=== PATIENT | male | born 2000 | race Two or more races ===

== ENCOUNTER 2023-09-19 22:46 | Emergency (ER) | payer MEDICAID, OTHER ==
[~2023-09-19] VITALS: Ht 182.9 cm; Wt 101.5 kg
[2023-09-19 22:50] VITALS: BP 134/86; RESP 18; O2SAT 98
[2023-09-19 23:41] LABS: INR 1.08 (0.9-1.15); Prothrombin Time 11.3 sec (9.3-11.8)
[2023-09-19 23:49] LABS: Alanine Aminotransferase 36 U/L (7-40); Alkaline Phosphatase 98 U/L (46-116); Anion Gap 7 (5-15); Aspartate Aminotransferase 26 U/L (13-40); Calcium 9.2 mg/dL (8.7-10.4); Carbon Dioxide 24 mmol/L (20-30); Chloride 107 mmol/L (98-107); Glucose 104 mg/dL (74-106); Sodium 138 mmol/L (136-145)
[2023-09-19 23:50] LABS: Albumin 4.7 g/dL (3.2-4.8); Total Protein 7.2 g/dL (5.7-8.2)
[2023-09-19 23:51] LABS: BUN/Creatinine Ratio 5.5 (10.0-20.0); Blood Urea Nitrogen < 5 mg/dL (9-23)
[2023-09-20 00:54] VITALS: PULSE 78
== END 2023-09-20 06:11 | disposition home or self-care (01) ==
LOC: ER 22:46 → EDSEX 22:46 → ER 09-20 06:11
DX: R07.9 Chest pain, unspecified (principal); Z79.899 Other long term (current) drug therapy
CPT/HCPCS: 36415; 71045; 80053; 83735; 83880; 84484; 85610; 85730; 93005

== ENCOUNTER 2025-03-04 17:41 | Inpatient (IN) | payer MEDICAID ==
[~2025-03-04] VITALS: Ht 182.9 cm; Wt 112.5 kg
--- NOTE | 2025-03-04 18:57 | ED.PDOC ---
History of Present Illness HPI Comments 24-year-old male who comes in with chief complaint of injury to the right ankle. The patient states that he was playing at the [employer] back in December on the . The patient accidentally injured his ankle and was then taken to the hospital. The patient has suffered a fracture to the ankle. At that time he was then splinted and went home. If the patient then saw his mother is primary care doctor who then referred him to an orthopedic surgeon. The patient was unable to get an appointment. He went back to the primary care doctor and then ended up going to the orthopedics clinic yesterday here at [facility]. The patient now comes in because he is going to be admitted for surgery. The patient is still complaining of some right ankle pain and the ankle is currently splinted and in a boot. Chief Complaint: Lower Extremity Time Seen by MD: 18:15 Primary Care Provider: UNKNOWN Reviewed Notes: Nurses Notes, Medications, Allergies (No allergies to medications) Allergies: Coded Allergies: NO KNOWN ALLERGIES (Unverified , 09/20/23) Information Source: Patient Mode of Arrival: Wheelchair Severity: Moderate Timing: Weeks Duration: Since onset Prehospital treatment: None Location: Right ankle pain and fracture Past Medical History PAST MEDICAL HISTORY: Denies Surgical History: Denies all surgeries Family History Family History: Family hx of Cancer Social History Smoker: Cigarettes Alcohol: Occasionally Drugs: Marijuana Lives In: Home Constitutional: denies: chills, diaphoresis, fatigue, fever, malaise, sweats, weakness, others EENTM: denies: blurred vision, double vision, ear bleeding, ear discharge, ear drainage, ear pain, ear ringing, eye pain, eye redness, hearing loss, mouth pain, mouth swelling, nasal discharge, nose bleeding, nose congestion, nose pain, photophobia, tearing, throat pain, throat swelling, voice changes, others Respiratory: denies: cough, hemoptysis, orthopnea, SOB at rest, shortness of breath, SOB with excertion, stridor, wheezing, others Cardiovascular: denies: chest pain, dizzy spells, diaphoresis, Dyspnea on exertion, edema, irregular heart beat, left arm pain, lightheadedness, palpitations, PND, syncope, others Gastrointestinal: denies: abdomen distended, abdominal pain, blood streaked bowels, constipated, diarrhea, dysphagia, difficulty swallowing, hematemesis, melena, nausea, poor appetite, poor fluid intake, rectal bleeding, rectal pain, vomiting, others Genitourinary: denies: burning, dysuria, flank pain, frequency, hematuria, incontinence, penile discharge, penile sore, pain, testicle pain, testicle swelling, urgency, others Neurological: denies: dizziness, fainting, headache, left sided numbness, left sided weakness, numbness, paresthesia, pre-existing deficit, right sided numbness, right sided weakness, seizure, speech problems, tingling, tremors, weakness, others Musculoskeletal: reports: others (The patient has pain to the right ankle and is currently splinted); denies: back pain, gout, joint pain, joint swelling, muscle pain, muscle stiffness, neck pain Integumetry: denies: bruises, change in color, change in hair/nails, dryness, laceration, lesions, lumps, rash, wounds, others Allergic/Immunocompromised: denies: Difficulty Healing, Frequent Infections, Hives, Itching, others Hematologic/Lymphatic: denies: anemia, blood clots, easy bleeding, easy bruising, swollen glands, others Endocrine: denies: excessive hunger, excessive sweating, excessive thirst, excessive urination, flushing, intolerance to cold, intolerance to heat, unexp lained weight gain, unexplained weight loss, others Psychiatric: denies: anxiety, bipolar disorder, depression, hopeless, panic disorder, schizophrenia, sleepless, suicidal, others Physical Exam General Appearance: Moderate Distress HEENT: Normal ENT Inspection, Pharynx Normal, TMs Normal Neck: Full Range of Motion, Non-Tender, Normal, Normal Inspection Respiratory: Chest Non-Tender, Lungs Clear, No Accessory Muscle Use, No Respiratory Distress, Normal Breath Sounds Cardiovascular: No Edema, No JVD, No Murmur, No Gallop, Normal Peripheral Pulses, Regular Rate/Rhythm Breast Exam: Deferred Gastrointestinal: No Organomegaly, Non Tender, No Pulsatile Mass, Normal Bowel Sounds, Soft Genitalia: Deferred Pelvic: Deferred Rectal: Deferred Extremities: No calf tenderness, Normal capillary refill, No pedal edema Musculoskeletal : Location: Right Extremity Location: Ankle Apperance: Limited ROM, Tenderness: Moderate Neurologic: Alert, duty engineer II-XII nml as Tested, No Motor Deficits, Normal Affect, Normal Mood, No Sensory Deficits Cerebellar Function: Normal Reflexes: Normal Skin: Dry, Normal Color, Warm Lymphatic: No Adenopathy Was a procedure done? Was a procedure done?: No Differential Dx Considerations may include: Fracture, strain, contusion, dislocation X-Ray, Labs, Meds, VS Vital Signs Date Time Temp Pulse Resp B/P (MAP) Pulse Ox O2 Delivery O2 Flow Rate FiO2 03/04/25 17:47 97.8 75 20 139/89 (106) 95 97.8 Lab Test 03/04/25 18:55 Range/Units White Blood Count 7.7 4.4-10.8 10^3/uL Red Blood Count 5.35 4.5-5.90 10^6/uL Hemoglobin 15.5 13.5-17.5 g/dL Hematocrit 45.0 41.0-53.0 % Mean Corpuscular Volume 84.0 80.0-100.0 fL Mean Corpuscular Hemoglobin 29.0 28.0-32.0 pg Mean Corpuscular Hemoglobin Concent 34.5 32.0-36.0 g/dL Red Cell Distribution Width 13.8 11.8-14.3 % Platelet Count 271 140-450 10^3/uL Mean Platelet Volume 8.1 6.9-10.8 fL Neutrophils (%) (Auto) 59.1 37.0-80.0 % Lymphocytes (%) (Auto) 29.3 10.0-50.0 % Monocytes (%) (Auto) 8.2 0.0-12.0 % Eosinophils (%) (Auto) 3.0 0.0-7.0 % Basophils (%) (Auto) 0.4 0.0-2.0 % Neutrophils # (Auto) 4.5 1.6-8.6 10 ^3/uL Lymphocytes # (Auto) 2.2 0.4-5.4 10 ^3/uL Monocytes # (Auto) 0.6 0-1.3 10 ^3/uL Eosinophils # (Auto) 0.2 0-0.8 10 ^3/uL Basophils # (Auto) 0 0-0.2 10 ^3/uL Nucleated Red Blood Cells 0.1 % Prothrombin Time 10.7 9.3-11.8 sec Prothrombin Time INR 1.01 0.9-1.15 Activated Partial Thromboplast Time 30.1 24.5-34.5 SEC Sodium Level 142 136-145 mmol/L Potassium Level 3.6 3.5-5.1 mmol/L Chloride Level 108 H 98-107 mmol/L Carbon Dioxide Level 25 20-31 mmol/L Anion Gap 9 5-15 Blood Urea Nitrogen 7 L 9-23 mg/dL Creatinine 0.86 0.700-1.30 mg/dL Glomerular Filtration Rate Calc 123 >90 mL/min BUN/Creatinine Ratio 8.1 L 10.0-20.0 Serum Glucose 84 74-106 mg/dL Calcium Level 10.1 8.7-10.4 mg/dL IV Hep-Lock was established. We did contact the orthopedic surgeon and they will consult The patient will be admitted to medicine at this time The patient is to remain NPO after midnight The patient's CBC is within normal limits The chemistry panel is within normal limits The patient was typed and screened The patient is being admitted Images Reviewed?: Images reviewed and evaluated by me Time of 1ST Reevaluation: 18:56 Reevaluation 1ST: Unchanged Patient Education/Counseling: Diagnosis, Treatment, Prognosis Family Education/Counseling: Diagnosis, Treatment, Prognosis Departure 1 Departure Time of Disposition: 18:56 Impression: Primary Impression: Closed right ankle fracture Qualified Codes: S82.891D - Other fracture of right lower leg, subsequent encounter for closed fracture with routine healing Disposition: 09 ADMITTED INPATIENT Admit to: Med Surg Condition: Fair Critical Care Note Critical Care Time?: No (Two) Stability Stability form required: Yes Unstable for transfer: ED Physician Assesment (Clinical assesment) Heart Score Heart Score: Heart Score Response (Comments) Value History N/A 0 EKG N/A 0 Age N/A 0 Risk Factors N/A 0 Troponin N/A (Meds for) 0 Total 0 KATY DAVIS MD Mar 04, 2025 18:57
[2025-03-04 19:08] LABS: Basophils # (auto) 0 10 ^3/uL (0-0.2); Basophils % (auto) 0.4 % (0.0-2.0); Eosinophils # (auto) 0.2 10 ^3/uL (0-0.8); Hemoglobin 15.5 g/dL (13.5-17.5); Lymphocytes # (auto) 2.2 10 ^3/uL (0.4-5.4); Lymphocytes % (auto) 29.3 % (10.0-50.0); Mean Corpuscular Hgb Conc. 34.5 g/dL (32.0-36.0); Monocytes # (auto) 0.6 10 ^3/uL (0-1.3); Monocytes % (auto) 8.2 % (0.0-12.0); Neutrophils # (auto) 4.5 10 ^3/uL (1.6-8.6); Neutrophils % (auto) 59.1 % (37.0-80.0); Nucleated Red Blood Cells % 0.1 %; Platelet Count (auto) 271 10^3/uL (140-450); Red Blood Cells 5.35 10^6/uL (4.5-5.90); Red Cell Distribution Width 13.8 % (11.8-14.3); White Blood Cell 7.7 10^3/uL (4.4-10.8)
[2025-03-04 19:16] LABS: Potassium 3.6 mmol/L (3.5-5.1); Sodium 142 mmol/L (136-145)
[2025-03-04 19:17] LABS: Anion Gap 9 (5-15); Carbon Dioxide 25 mmol/L (20-31)
[2025-03-04 19:18] LABS: Calcium 10.1 mg/dL (8.7-10.4)
[2025-03-04 19:19] LABS: Chloride 108 mmol/L (98-107)
[2025-03-04 19:22] LABS: Glucose 84 mg/dL (74-106)
[2025-03-04 19:23] LABS: BUN/Creatinine Ratio 8.1 (10.0-20.0); Blood Urea Nitrogen 7 mg/dL (9-23); INR 1.01 (0.9-1.15); Partial Thromboplastin Time 30.1 SEC (24.5-34.5); Prothrombin Time 10.7 sec (9.3-11.8)
[2025-03-04] MEDS ORDERED: MORPHINE SULFATE INJ 2 MG/ml SYRG IV PRN (19:30)
--- NOTE | 2025-03-04 20:34 | DVH ---
EXAMINATION: Chest x-ray 1 view CLINICAL HISTORY: preop COMPARISON: XY CHEST PORTABLE on DOS: 09/20/23 FINDINGS: No dominant consolidation. The costophrenic angles appear clear. No sizable pleural effusion or pneu mothorax. The cardiomediastinal silhouette appears within normal limits. IMPRESSION: No acute cardiopulmonary findings as visualized.
--- NOTE | 2025-03-04 20:54 | DVHHP2 ---
History of Present Illness Reason for Visit: Right ankle fracture History of Present Illness 24-year-old male presents for evaluation of right ankle fracture. Patient reports sustaining a right ankle fracture on January 11, 2025. He has not been able to see an orthopedic surgeon till this week. Patient has been scheduled for surgery tomorrow. Past Medical History Denies Past Surgical History Denies Family History Cancer Smoke: <1 pack per day ALCOHOL: occassional Drugs: Marijuana Lives: with Family Review of Systems Review of Systems Review of systems are currently negative otherwise addressed in HPI. Allergies: Coded Allergies: NO KNOWN ALLERGIES (Unverified , 09/20/23) Medications Current Medications Medications Dose Ordered Sig/Germain Route Start Time Stop Time Status Last Admin Dose Admin Ondansetron HCl 4 mg Q4HP PRN IV 03/04/25 19:30 Morphine Sulfate 2 mg Q4HPRN PRN IV 03/04/25 20:15 Exam Vital Signs Vital Signs Date Time Temp Pulse Resp B/P (MAP) Pulse Ox O2 Delivery O2 Flow Rate FiO2 03/04/25 17:47 97.8 75 20 139/89 (106) 95 97.8 Exam Gen: 24-year-old male in mild distress Skin: Warm, dry, normal color and texture, no rash. HEENT: Normocephalic atraumatic, mucous membranes moist and pink. Neck: Cervical and supraclavicular nodes normal without enlargement, trachea is midline, thyroid gland is normal without masses. Pulmonary: Clear to auscultation and percussion bilaterally. Cardiac: Regular rate and rhythm. No murmur Abdomen: Soft, nontender, nondistended, bowel sounds present all 4 quadrants, no guarding, no rigidity, no organomegaly. Extremities: No cyanosis, clubbing, right lower extremity on a splint with positive distal pulses Neuro: Cranial nerves II through XII grossly intact, normal affect and speech, no focal motor deficits. Labs/Xrays ORDERING PHYSICIAN: MALVIN HARRIS PAC PROCEDURE(s): RFOOT - R FOOT 3 VIEW XRAY REASON: R FOOT FX- WB ORDER NUMBER(s): [id number], ACCESSION NUMBER(s): [id number] CLINICAL INDICATION: Pain, right foot fracture TECHNIQUE: 3 radiographic views of the right foot were obtained. Comparison: None FINDINGS/IMPRESSION: Overlying casting material obscures evaluation of osseous detail. Right distal tibia and right distal fibula fracture visualized Labs Test 03/04/25 18:55 Range/Units White Blood Count 7.7 4.4-10.8 10^3/uL Red Blood Count 5.35 4.5-5.90 10^6/uL Hemoglobin 15.5 13.5-17.5 g/dL Hematocrit 45.0 41.0-53.0 % Mean Corpuscular Volume 84.0 80.0-100.0 fL Mean Corpuscular Hemoglobin 29.0 28.0-32.0 pg Mean Corpuscular Hemoglobin Concent 34.5 32.0-36.0 g/dL Red Cell Distribution Width 13.8 11.8-14.3 % Platelet Count 271 140-450 10^3/uL Mean Platelet Volume 8.1 6.9-10.8 fL Neutrophils (%) (Auto) 59.1 37.0-80.0 % Lymphocytes (%) (Auto) 29.3 10.0-50.0 % Monocytes (%) (Auto) 8.2 0.0-12.0 % Eosinophils (%) (Auto) 3.0 0.0-7.0 % Basophils (%) (Auto) 0.4 0.0-2.0 % Neutrophils # (Auto) 4.5 1.6-8.6 10 ^3/uL Lymphocytes # (Auto) 2.2 0.4-5.4 10 ^3/uL Monocytes # (Auto) 0.6 0-1.3 10 ^3/uL Eosinophils # (Auto) 0.2 0-0.8 10 ^3/uL Basophils # (Auto) 0 0-0.2 10 ^3/uL Nucleated Red Blood Cells 0.1 % Prothrombin Time 10.7 9.3-11.8 sec Prothrombin Time INR 1.01 0.9-1.15 Activated Partial Thromboplast Time 30.1 24.5-34.5 SEC Sodium Level 142 136-145 mmol/L Potassium Level 3.6 3.5-5.1 mmol/L Chloride Level 108 H 98-107 mmol/L Carbon Dioxide Level 25 20-31 mmol/L Anion Gap 9 5-15 Blood Urea Nitrogen 7 L 9-23 mg/dL Creatinine 0.86 0.700-1.30 mg/dL Glomerular Filtration Rate Calc 123 >90 mL/min BUN/Creatinine Ratio 8.1 L 10.0-20.0 Serum Glucose 84 74-106 mg/dL Calcium Level 10.1 8.7-10.4 mg/dL Assessment/Plan Assessment/Plan Assessment Closed right ankle fracture Plan Admit the patient to [facility] surge to the hospitalist Orthopedic consult NPO Pain management Continue treatment per orders. Plan discussed with: Patient My Orders Orders - SANDRA KEEN Procedure Category Date Status Time Admit ADMIT 03/04/25 Transmitted 19:21 Chest Xray 1 View XY 03/04/25 Resulted 19:21 Ondansetron Hcl PHA 03/04/25 In Process (Zofran) 19:30 Npo (Nothing By DIET 03/05/25 Transmitted Mouth) Diet Breakfast Condition: Stable PARAMJIT 03/04/25 In Process 19:21 Bedrest With Bathroom PARAMJIT 03/04/25 In Process Privileg 19:21 Sodium Chloride 0.9% PHA 03/04/25 In Process 19:30 Morphine Sulfate PHA 03/04/25 In Process Injection 20:15 *Cons[address] Dr[address] Forde CONS 03/04/25 Transmitted Luz 20:39 Date of Service: Mar 04, 2025 Billing Provider: SANDRA KEEN Common Visit Codes: [id number] INP/OBS CARE (MOD) SANDRA KEEN Mar 04, 2025 20:54
[2025-03-04] MEDS: ONDANSETRON HCL 4 MG/2 ML VIAL IV PRN (21:00)
[2025-03-04] MEDS: SODIUM CHLORIDE 0.9% 1,000 ML IV ONE (21:00)
[2025-03-04] MEDS: MORPHINE SULFATE 4 MG/ML SYR/VIAL IV PRN (21:01)
[2025-03-05] VITALS (8 sets, daily range): BP systolic 110–131; BP diastolic 55–75; PULSE 46–80; RESP 17–99; TEMP 96.5–98.1; O2SAT 97–100
[2025-03-05] MEDS: ceFAZolin 2 GM/D5W50ml 50 ML IV ONE (09:22)
[2025-03-05] MEDS ORDERED: fentaNYL CITRATE 100 MCG/2 ML VL ONE (09:23)
[2025-03-05] MEDS ORDERED: PROPOFOL 10 MG/ML 20 ML IV ONE (09:24)
[2025-03-05] MEDS ORDERED: HYDROmorphone HCL 2 MG/ML VL/or syr ONE (09:24)
[2025-03-05] MEDS ORDERED: KETOROLAC TROMETH 30 MG/ML 1ML VIAL ONE (09:24)
[2025-03-05] MEDS ORDERED: DexAMETHasone SOD PHOS 10MG/1ML VIAL INJ ONE (09:24)
[2025-03-05] MEDS ORDERED: LIDOCAINE 2% (LOCAL ANESTH.) PF 5ml SDV ONE (09:24)
[2025-03-05] MEDS ORDERED: GLYCOPYRROLATE 0.2 MG/ML 1ML VIAL ONE (09:24)
[2025-03-05] MEDS ORDERED: MIDAZOLAM HCL 2MG/2ML 2ml VIAL (1mg/ml) ONE (09:24)
--- NOTE | 2025-03-05 10:14 | DVH ---
EXAM: XY R ANKLE 2 VIEW XRAY HISTORY: PRE-OP EVAL COMPARISON: None TECHNIQUE: Three views of the right ankle were performed. FINDINGS: Subacute or chronic appearing fracture through the medial malleolus and the lateral malleol us. There is an acute nondisplaced fracture of the distal fibula. No dislocation. Ankle joint effus ion. Soft tissue swelling about the ankle. IMPRESSION: 1. Acute fracture of the distal fibula. Medial and lateral malleolus fractures.
--- NOTE | 2025-03-05 10:16 | DVHHP2 ---
History Allergies: Coded Allergies: NO KNOWN ALLERGIES (Unverified , 09/20/23) Chief Complaint: right foot and ankle pain Present Illness(Onset/[place], presented to [facility], treated with a closed reduction and referred to Orthopaedic care in [place]. Pt presented to Orthopaedic clinic 03/03/25, almost two months after date of injury. Pt has been non wt bearing in a wolker boot AR taken today of foot and ankle shows bimalleolar fractre with medial widening and navicular fracture Past Surgical History none Medications none Physical Exam Skin intact EENT NCAT Chest and Lungs CTA B Heart RRR neg MRG Abdomen NBS ND NT Extremities Right ankle , moderate swelling, tender to palpation medical and lateral malleoli as well as navicular ROM, stability not assessed due to dractures Vital Signs Vital Signs Date Time Temp Pulse Resp B/P (MAP) Pulse Ox O2 Delivery O2 Flow Rate FiO2 03/05/25 08:53 97.7 60 18 110/61 (77) 97 97.7 03/05/25 08:00 Room Air* 0 21 Impressions/Description Right ankle chronic untreated bimalleolar fracture dislocation with non concentric alignment of tib talar joint, and navicular fracture Plan Pt understands very high risk of nonunion, malunion, post traumatic arthritis due to 2 mo delay in fixation plan ORIF right ankle bimalleolar fracture and navicular fracture HIEU RAMIREZ MD Mar 05, 2025 10:16
[2025-03-05] MEDS: ONDANSETRON HCL 4 MG/2 ML VIAL IV ONE (11:30)
[2025-03-05] MEDS: BUPIVACAINE 0.25% INJ 50ML VIAL ONE (11:35)
--- NOTE | 2025-03-05 11:56 | DVHOP2 ---
Operative Report - 2 Report Details Date: 03/05/25 Preop Diagnosis: Right ankle bimalleolar fracture malunion Right navicular Postop Diagnosis: same Surgeon: Hieu Ramirez MD Manager Transfusion: none Anesthesiologist: Dr Calderon Anesthesia: General Drains: none Implant: medical screws, lateral plate and snyndesmosis screw Consent: The patient was informed of the risks and benefits of the procedure. These include but are not limited to complications of anesthesia, postoperative infection, incomplete relief of symptoms, recurrence of symptoms, damage to blood vessels, nerves and tendons, deep venous thrombosis, pulmonary embolism and possible need for repeat surgery in the future. Complications: none Estimated Blood Loss: 20 cc Fluids: 400 cc crystalloid Findings: malunion of biamalleolar ankle fracture with lateral displacement of talus healed medial navicular fracture Indications for Surgery: incongruity of bimalleolar fracture with increased risk of arthritis Name of Procedure Performed Open reduction internal fixation of right ankle bimalleolar fracture dislocation malunion Procedure Details Procedure Details: Patient brought to the operating room given Ancef 2 g IV piggyback preoperatively nonsterile tourniquet right thigh sterile prep and drape right lower extremity time-out performed comprehension right-sided correct site open reduction internal fixation of trimalleolar fracture dislocation malunion and possible ORIF of medial navicular pinning intraoperative assessment all present operating room agreeing a right-sided correct site procedures as described above correct procedures after review of operative consent history and physical my initials on right foot and ankle exsanguination with Esmarch tourniquet elevated to 250 mm Hg total tourniquet time 45 minutes longitudinal incision made over the medial malleolus sharp dissection through skin down to subcutaneous tissue blunt dissection down to deep fascia retracted and saphenous nerve and artery anteriorly subperiosteal elevation performed exposing fracture site fracture seemed to be partially healed with medial malleolus medially displaced and anteriorly displaced osteotome then inserted into fracture site re-establishing fracture medial malleolus and retracted medially exposing the articular surface there seemed to be roughly 0.5 cm of scar within the joint surface on the medial aspect of the talus this was then debrided with curettage and Ramírez allowing good overall alignment of the medial malleolus although medial malleolus was not fixed at that time until the lateral malleolus was assessed longitudinal incision over the lateral joint sharp dissection through skin down to subcutaneous tissue to sterile nerve retracted danny lateral and posterior subperiosteal elevation performed malunion of the lateral malleolus was seen as well with a posterior and proximal positioning of lateral malleolus osteotome insert into fracture site as well re-establishing fracture distal fibula retracted posteriorly exposing syndesmotic joint there seemed to be roughly 1/2 cm of thickness scar within this in the syndesmosis which was removed with curettage and lateral malleolus was restored to anatomic alignment C-arm fluoro taken showing good closure interrupt every spiritism of talar talar alignment tib talar joint alignment inter frag screw placed in the lateral malleolus lateral plate placed lateral malleolus medial malleolus then fixed with two cannulated screws and then syndesmotic screw to close down joint C-arm fluoro taken showing anatomic alignment of joint with good closure of joint space and good concentric alignment of tib talar joint and good position of hardware tourniquet let down excellent hemostasis noted excellent hemostasis noted irrigation performed closure subcutaneous 2-0 Vicryl skin eugenia fluffs ABD loose Александр wrap walker boot strict nonweightbearing six weeks we will occur through thank you follow up orthopedic office two weeks Specimen: none Condition Stable Disposition Home HIEU RAMIREZ MD Mar 05, 2025 11:56
--- NOTE | 2025-03-05 12:02 | DVHHP2 ---
History Allergies: Coded Allergies: NO KNOWN ALLERGIES (Unverified , 09/20/23) Chief Complaint: Right ankle and foot pain s[place] fall [place] beach [place]/11[place]25 Present Illness(Onset/Duration 24M, mechanical fall on beach on 01/11/25, presented to [facility] ER, closed reduction performed, pt referred to [facility] for orthopedic care Past Surgical History none Medications none Physical Exam Skin intact Extremities Right ankle, moderate swelling, NVI Vital Signs Vital Signs Date Time Temp Pulse Resp B/P (MAP) Pulse Ox O2 Delivery O2 Flow Rate FiO2 03/05/25 08:53 97.7 60 18 110/61 (77) 97 97.7 03/05/25 08:00 Room Air* 0 21 Impressions/Description 24M Right ankle bimalleolar fracture dislocatoin , malunion Plan 24 M, right ankle bimalleolar malunion, navicular fracture 1) ORIF right ankle bimalleolar fracture 2) possible ORIF right navicular HIEU RAMIREZ MD Mar 05, 2025 12:02
[2025-03-05] MEDS: HYDROmorphone HCL 2 MG/ML VL/or syr IV PRN (12:12)
--- NOTE | 2025-03-05 13:26 | DVHPN2 ---
Reviewed: Care Plan, H&P, Labs, Medications, Previous Orders, Radiology Changes from previous H/P or p: No Changes Objective Vitals Vital Signs Date Time Temp Pulse Resp B/P (MAP) Pulse Ox O2 Delivery O2 Flow Rate FiO2 03/05/25 12:26 62 16 146/91 03/05/25 11:43 97.3 100 97.3 03/05/25 11:43 Mask 6.0 03/05/25 08:00 21 Intake/Output Intake and Output 03/05/25 07:00 Intake Total 0 ml Output Total 1200 ml Balance -1200 ml Intake Oral 0 ml Output Urine Total 1200 ml Medications Current Medications Medications Dose Ordered Sig/Germain Route Start Time Stop Time Status Last Admin Dose Admin Ondansetron HCl 4 mg Q4HP PRN IV 03/04/25 19:30 03/04/25 21:00 4 MG Morphine Sulfate 2 mg Q4HPRN PRN IV 03/04/25 20:15 03/04/25 21:01 2 MG Laboratory Results Laboratory Tests 03/04/25 18:55 Chemistry Test 03/04/25 18:55 Calcium Level 10.1 mg/dL (8.7-10.4) Coagulation Test 03/04/25 18:55 Prothrombin Time 10.7 sec (9.3-11.8) Prothrombin Time INR 1.01 (0.9-1.15) Activated Partial Thromboplast Time 30.1 SEC (24.5-34.5) Labs and/or images reviewed: Labs reviewed by me, Image(s) reviewed by me Assessment/Plan Assessment/Plan Open reduction internal fixation of right ankle bimalleolar fracture dislocation malunion by Dr Gonzalez Injury sustained on 01/11/2025 and patient was not able to see any Dr until now Plan discussed with: Patient Date of Service: Mar 05, 2025 Billing Provider: CHANTEL SLAUGHTER MD Common Visit Codes: [id number] INP/OBS CARE(HIGH) CHANTEL SLAUGHTER MD Mar 05, 2025 13:26
--- NOTE | 2025-03-05 15:06 | DVH ---
FLUOROSCOPY TIME: 26.6 seconds TECHNIQUE: Intraoperative radiographs of the right ankle were obtained. COMPARISON: None FINDINGS: Refer to intraoperative report for further evaluation. IMPRESSION: Refer to intraoperative report for further evaluation.
[2025-03-06] VITALS (8 sets, daily range): BP systolic 110–145; BP diastolic 59–75; PULSE 53–74; RESP 16–20; TEMP 97.6–98.6; O2SAT 97–100
--- NOTE | 2025-03-06 11:54 | DVHPN2 ---
Reviewed: Care Plan, H&P, Labs, Medications, Previous Orders, Radiology Changes from previous H/P or p: No Changes Objective Vitals Vital Signs Date Time Temp Pulse Resp B/P (MAP) Pulse Ox O2 Delivery O2 Flow Rate FiO2 03/06/25 09:41 57 18 124/73 03/06/25 08:52 97.7 100 97.7 03/06/25 08:00 Room Air* 0 21 Intake/Output Intake and Output 03/06/25 07:00 Intake Total 700 ml Output Total 2200 ml Balance -1500 ml Intake Oral 600 ml IV Total 100 ml Output Urine Total 2200 ml Medications Current Medications Medications Dose Ordered Sig/Germain Route Start Time Stop Time Status Last Admin Dose Admin Ondansetron HCl 4 mg Q4HP PRN IV 03/04/25 19:30 03/04/25 21:00 4 MG Morphine Sulfate 2 mg Q4HPRN PRN IV 03/04/25 20:15 03/06/25 08:45 2 MG Laboratory Results Laboratory Tests 03/04/25 18:55 Labs and/or images reviewed: Labs reviewed by me, Image(s) reviewed by me Assessment/Plan Assessment/Plan Open reduction internal fixation of right ankle bimalleolar fracture dislocation malunion by Dr Gonzalez Injury sustained on 01/11/2025 and patient was not able to see any Dr until now Physical therapy ordered Plan discussed with: Patient Date of Service: Mar 06, 2025 Billing Provider: CHANTEL SLAUGHTER MD Common Visit Codes: [id number] INP/OBS CARE(HIGH) CHANTEL SLAUGHTER MD Mar 06, 2025 11:54
[2025-03-06] MEDS: HYDROcodone-ACET 10/325MG TAB PO PRN (12:49)
[2025-03-07] VITALS (9 sets, daily range): BP systolic 116–151; BP diastolic 52–80; PULSE 50–70; RESP 16–20; TEMP 97.7–98.6; O2SAT 0–99
--- NOTE | 2025-03-07 12:48 | DVHPN2 ---
Reviewed: Care Plan, H&P, Labs, Medications, Previous Orders, Radiology Changes from previous H/P or p: No Changes Objective Vitals Vital Signs Date Time Temp Pulse Resp B/P (MAP) Pulse Ox O2 Delivery O2 Flow Rate FiO2 03/07/25 12:33 97.9 54 18 129/80 (96) 99 97.9 03/07/25 08:00 Room Air* 0 21 Intake/Output Intake and Output 03/07/25 07:00 Intake Total 980 ml Output Total 1200 ml Balance -220 ml Intake Oral 980 ml Output Urine Total 1200 ml # Voids 5 Medications Current Medications Medications Dose Ordered Sig/Germain Route Start Time Stop Time Status Last Admin Dose Admin Ondansetron HCl 4 mg Q4HP PRN IV 03/04/25 19:30 03/04/25 21:00 4 MG Morphine Sulfate 2 mg Q4HPRN PRN IV 03/04/25 20:15 03/07/25 11:32 2 MG Acetaminophen/ Hydrocodone Bitart 1 tab Q6HP PRN PO 03/06/25 12:00 03/07/25 09:14 1 TAB Laboratory Results Laboratory Tests 03/04/25 18:55 Labs and/or images reviewed: Labs reviewed by me, Image(s) reviewed by me Assessment/Plan Assessment/Plan Open reduction internal fixation of right ankle bimalleolar fracture dislocation malunion by Dr Gonzalez Injury sustained on 01/11/2025 and patient was not able to see any Dr until now Physical therapy ordered Plan discussed with: Patient Date of Service: Mar 07, 2025 Billing Provider: CHANTEL SLAUGHTER MD Common Visit Codes: [id number] INP/OBS CARE(HIGH) CHANTEL SLAUGHTER MD Mar 07, 2025 12:48
[2025-03-08 01:00] VITALS: BP 150/90; PULSE 56; RESP 16; TEMP 97.7; O2SAT 97
[2025-03-08 05:00] VITALS: BP 116/62; PULSE 50; RESP 17; TEMP 97.8; O2SAT 97
[2025-03-08 08:00] VITALS: PULSE 68; RESP 18; O2SAT 99
[2025-03-08 09:00] VITALS: BP 136/81; PULSE 54; RESP 18; TEMP 98.3; O2SAT 99
[2025-03-08] MEDS ORDERED: HYDR-4798 PO (12:43)
--- NOTE | 2025-03-08 12:46 | DVHDS2 ---
Discharge Summary Date of Admission Mar 04, 2025 at 19:21 Date of Discharge: Mar 08, 2025 Admitting Diagnosis Right ankle fracture Wounds: Right ankle fracture Labs/Diagnostic Data: Laboratory Results Test 03/04/25 18:55 White Blood Count 7.7 10^3/uL (4.4-10.8) Red Blood Count 5.35 10^6/uL (4.5-5.90) Hemoglobin 15.5 g/dL (13.5-17.5) Hematocrit 45.0 % (41.0-53.0) Mean Corpuscular Volume 84.0 fL (80.0-100.0) Mean Corpuscular Hemoglobin 29.0 pg (28.0-32.0) Mean Corpuscular Hemoglobin Concent 34.5 g/dL (32.0-36.0) Red Cell Distribution Width 13.8 % (11.8-14.3) Platelet Count 271 10^3/uL (140-450) Mean Platelet Volume 8.1 fL (6.9-10.8) Neutrophils (%) (Auto) 59.1 % (37.0-80.0) Lymphocytes (%) (Auto) 29.3 % (10.0-50.0) Monocytes (%) (Auto) 8.2 % (0.0-12.0) Eosinophils (%) (Auto) 3.0 % (0.0-7.0) Basophils (%) (Auto) 0.4 % (0.0-2.0) Neutrophils # (Auto) 4.5 10 ^3/uL (1.6-8.6) Lymphocytes # (Auto) 2.2 10 ^3/uL (0.4-5.4) Monocytes # (Auto) 0.6 10 ^3/uL (0-1.3) Eosinophils # (Auto) 0.2 10 ^3/uL (0-0.8) Basophils # (Auto) 0 10 ^3/uL (0-0.2) Nucleated Red Blood Cells 0.1 % Prothrombin Time 10.7 sec (9.3-11.8) Prothrombin Time INR 1.01 (0.9-1.15) Activated Partial Thromboplast Time 30.1 SEC (24.5-34.5) Sodium Level 142 mmol/L (136-145) Potassium Level 3.6 mmol/L (3.5-5.1) Chloride Level 108 mmol/L (98-107) Carbon Dioxide Level 25 mmol/L (20-31) Anion Gap 9 (5-15) Blood Urea Nitrogen 7 mg/dL (9-23) Creatinine 0.86 mg/dL (0.700-1.30) Glomerular Filtration Rate Calc 123 mL/min (>90) BUN/Creatinine Ratio 8.1 (10.0-20.0) Serum Glucose 84 mg/dL (74-106) Calcium Level 10.1 mg/dL (8.7-10.4) Other Laboratory Tests 03/04/25 18:55 Brief Hx & Hospital Course: 24-week-old male sustained right ankle fracture on 01/11/[address] because of lack of insurance and came to [facility] got admitted underwent ORIF of by malleolar fracture right ankle by orthopedic Dr. Gonzalez. Treated with the pain medications and physical therapy and being discharged home to follow up with the ortho in two weeks prescription for [place] transmitted to the pharmacy Consults/Reason for consult Orthopedic Dr. Kerr Operations or Procedures ORIF right ankle fracture Condition at Discharge: Fair Final Diagnosis/Problems List Open reduction internal fixation of right ankle bimalleolar fracture dislocation malunion by Dr Gonzalez Injury sustained on 01/11/2025 and patient was not able to see any Dr until now Discharge Disposition: Home Discharge Instruct/Medications Diet: Regular Activity: See Comment Activity comment: Non weight-bearing right lower extremity Follow Up/Referral: Follow up with the orthopedic Dr Dr. Berry Erazo in two weeks Medications: [place] Transmitted to pharmacy 35 (Time taken for discharge summary 35 minutes) Discharge Statement: "Patient was advised to return to the ER or call 911 if any headaches, dizziness, shortness of breath, chest pain, abdominal pain, bleeding, fevers, or worsening of medical condition. Patient was counseled about treatment plan, medications, possible side effects, patientverbalized understanding. All questions were answered to the best of my ability. This discharge took greater then 30 minutes in planning, reviewing documentation, counseling the patient, and discussing with other team members." ASSESSMENT ASSESSMENT Hospital Course Improved Assessment Open reduction internal fixation of right ankle bimalleolar fracture dislocation malunion by Dr Gonzalez Injury sustained on 01/11/2025 and patient was not able to see any Dr until now Date of Service: Mar 08, 2025 Billing Provider: CHANTEL SLAUGHTER MD Common Visit Codes: 90924-RJI/OBS DISCH DAY >30min CHANTEL SLAUGHTER MD Mar 08, 2025 12:46
[2025-03-08 13:00] VITALS: BP 159/95; PULSE 58; RESP 17; TEMP 98.2; O2SAT 100
== END 2025-03-08 15:45 | disposition home or self-care (01) | DRG 313 ==
LOC: ER 17:41 → OVERFLOW 19:21 → WEST WING 22:40
PROVIDERS: ADMIT Family Medicine; ATTEND Family Medicine
PROC: 0QSJ04Z Reposition Right Fibula with Internal Fixation Device, Open Approach (ICD-10-PCS; 2025-03-05)
PROC: 0QSG04Z Reposition Right Tibia with Internal Fixation Device, Open Approach (ICD-10-PCS; principal; 2025-03-05 10:20)
DX: S82.841A Displaced bimalleolar fracture of right lower leg, initial encounter for closed fracture (principal); F17.210 Nicotine dependence, cigarettes, uncomplicated; S92.251A Displaced fracture of navicular [scaphoid] of right foot, initial encounter for closed fracture; W18.39XA Other fall on same level, initial encounter; Y93.89 Activity, other specified; Y92.89 Other specified places as the place of occurrence of the external cause; Y99.8 Other external cause status
CPT/HCPCS: 36415; 71045; 73600; 76000; 80048; 85025; 85610; 85730; 86850; 86900; 86901; 97110; 97116; 97163; G0378; J1100; J1885; J2003; J2250; J2405; J2704; J3490

== ENCOUNTER 2025-07-19 23:43 | Emergency (ER) | payer MEDICAID ==
[~2025-07-19] VITALS: Ht 182.9 cm; Wt 122.0 kg
[~2025-07-19 23:43] MED LIST: HYDR-4798 PO
[2025-07-20] MEDS ORDERED: CEPH250C PO (01:08)
[2025-07-20] MEDS ORDERED: IBUP-1455 PO (01:08)
--- NOTE | 2025-07-20 01:08 | ED.PDOC ---
HPI Comments This patient is a 24-year-old male who arrives the ED today via EMS due to laceration sustained to the right wrist proximally 1 hour prior to arrival. Patient states he was trying to adjust the ports like when the glass fixture broken cut his right wrist. Initially, bleeding was not well controlled. EMS arrived and applied a pressure bandage and bleeding was controlled at time of evaluation. Patient denies any fever nausea or vomiting. Vital signs were stable. Patient's tetanus is not up-to-date. 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 Allergies: Coded Allergies: NO KNOWN ALLERGIES (Unverified , 09/20/23) Home Meds Active Scripts Hydrocodone-Acetaminophen (Hydrocodone Bitartrate/AC 10-325 mg) 1 Tab Tab, 1 TAB PO QID PRN, #40 TAB Prov:CHANTEL SLAUGHTER MD 03/08/25 Information Source: Patient, Emergency Med Personnel Mode of Arrival: EMS Severity: Moderate Severity of Laceration: Controlled Bleeding Complexity: Intermediate Timing: Minutes Prehospital treatment: None Laceration Location: Other (Right hand and wrist) Mechanism: Glass Laceration Length (cm): 4 Skin Type: Jagged Depth of Injury: Skin, Mucosa, SQ Tendon Injury: 0% Capillary Refill: < 3 seconds Tender: Moderate Discharge: Bloody Past Medical History PAST MEDICAL HISTORY: Denies Surgical History: Denies all surgeries Family History Family History: Family hx of Cancer Social History Smoker: Cigarettes Alcohol: Occasionally Drugs: Marijuana Lives In: Home Constitutional: denies: chills, diaphoresis, fatigue, fever, malaise, sweats, weakness, others EENTM: denies: blurred vision, double vision, ear bleeding, ear discharge, ear drainage, ear pain, ear ringing, eye pain, eye redness, hearing loss, mouth pain, mouth swelling, nasal discharge, nose bleeding, nose congestion, nose pain, photophobia, tearing, throat pain, throat swelling, voice changes, others Respiratory: denies: cough, hemoptysis, orthopnea, SOB at rest, shortness of breath, SOB with excertion, stridor, wheezing, others Cardiovascular: denies: chest pain, dizzy spells, diaphoresis, Dyspnea on exe rtion, edema, irregular heart beat, left arm pain, lightheadedness, palpitations, PND, syncope, others Gastrointestinal: denies: abdomen distended, abdominal pain, blood streaked bowels, constipated, diarrhea, dysphagia, difficulty swallowing, hematemesis, melena, nausea, poor appetite, poor fluid intake, rectal bleeding, rectal pain, vomiting, others Genitourinary: denies: burning, dysuria, flank pain, frequency, hematuria, incontinence, penile discharge, penile sore, pain, testicle pain, testicle swelling, urgency, others Neurological: denies: dizziness, fainting, headache, left sided numbness, left sided weakness, numbness, paresthesia, pre-existing deficit, right sided numbness, right sided weakness, seizure, speech problems, tingling, tremors, weakness, others Musculoskeletal: denies: back pain, gout, joint pain, joint swelling, muscle pain, muscle stiffness, neck pain, others Integumetry: reports: laceration (To right hand/wrist region); denies: bruises, change in color, change in hair/nails, dryness, lesions, lumps, rash, wounds, others Allergic/Immunocompromised: denies: Difficulty Healing, Frequent Infections, Hives, Itching, others Hematologic/Lymphatic: denies: anemia, blood clots, easy bleeding, easy b ruising, swollen glands, others Endocrine: denies: excessive hunger, excessive sweating, excessive thirst, excessive urination, flushing, intolerance to cold, intolerance to heat, unexplained weight gain, unexplained weight loss, others Psychiatric: denies: anxiety, bipolar disorder, depression, hopeless, panic disorder, schizophrenia, sleepless, suicidal, others Physical Exam General Appearance: Mild Distress (Moderate distress due to laceration discomfort), Obese HEENT: Normal ENT Inspection, Pharynx Normal, TMs Normal Neck: Full Range of Motion, Non-Tender, Normal, Normal Inspection Respiratory: Chest Non-Tender, Lungs Clear, No Accessory Muscle Use, No Respiratory Distress, Normal Breath Sounds Cardiovascular: No Edema, No JVD, No Murmur, No Gallop, Normal Peripheral Pulses, Regular Rate/Rhythm Breast Exam: Deferred Gastrointestinal: No Organomegaly, Non Tender, No Pulsatile Mass, Normal Bowel Sounds, Soft Genitalia: Deferred Pelvic: Deferred Rectal: Deferred Extremities: No calf tenderness, Non-tender, No pedal edema Neurologic: Alert Cerebellar Function: NOT DONE Reflexes: NOT DONE Skin: Lacerations (Patient displays a 4 cm vertical laceration noted to the proximal thenar eminence extending into the wrist region. Bleeding is controlled. No tendon involvement.) Lymphatic: No Adenopathy Was a procedure done? Was a procedure done?: Yes Sedation Sedation?: No Other Procedure Notes 5 cc of 1% lidocaine was utilized for local anesthesia. Sterile field was placed. Copious irrigation performed. No foreign body detected. Eight 4-0 Ethilon sutures were utilized in a simple interrupted fashion to close the wound. Minimal blood loss. Patient tolerated the procedure well. Clean dressing applied. Differential diagnosis Generic Laceration: Laceration X-Ray, Labs, Meds, VS Vital Signs Date Time Temp Pulse Resp B/P (MAP) Pulse Ox O2 Delivery O2 Flow Rate FiO2 07/19/25 23:52 98.0 100 16 141/89 98 98.0 X-Ray, Labs, Meds, VS Comment Patient tolerated procedure well. Advised patient utilize antibiotics as directed until completion as well as pain medication as needed. Patient should return to ED or primary care provider in 10 days for re-evaluation and probable suture removal. Time of 1ST Reevaluation: 01:04 Reevaluation 1ST: Improved Consultation: PCP Patient Education/Counseling: Diagnosis, Treatment Family Education/Counseling: Diagnosis, Treatment Departure 1 Departure Time of Disposition: :07 Impression: Primary Impression: Laceration Disposition: HOME / SELF CARE / HOMELESS Condition: Stable Additional Instructions: Advised patient utilize antibiotics as directed until completion as well as pain medication as needed. Patient should return to ED or primary care provider in 10 days for re-evaluation and probable suture removal. Advised patient keep the wound clean and daily dressing changes. e-Prescriptions Ibuprofen Micronized (Ibuprofen) 800 Mg Tab 800 MG PO Q8HP PRN, #20 TAB Prov: FRANCK JOHNSON PAC 07/20/25 Cephalexin (KEFLEX CAPSULE) 250 Mg Cp 1 CAP PO QID for 7 Days, #28 CAP Prov: FRANCK JOHNSON PAC 07/20/25 Discharged With: Self, Friend Critical Care Note Critical Care Time?: No Stability Stability form required: No Heart Score Heart Score: Heart Score Response (Comments) Value History N/A 0 EKG N/A 0 Age N/A 0 Risk Factors N/A 0 Troponin N/A 0 Total 0 FRANCK JOHNSON PAC Jul 20, 2025 01:08
[2025-07-20] MEDS: CEPHALEXIN 250 MG CAP PO ONE (02:32)
[2025-07-20] MEDS: TETANUS-DIPTH-ACEL PERTUSSIS 0.5ML SYR Tdap IM ONE (02:33)
[2025-07-20] MEDS: HYDROcodone-ACET 5/325MG TAB PO ONE (02:33)
[2025-07-20 02:38] VITALS: BP 135/77; PULSE 94; RESP 18; TEMP 98.2; O2SAT 97
== END 2025-07-20 02:38 | disposition home or self-care (01) ==
LOC: EDUNIT# 23:43 → EDBD 23:43 → ER 23:43
DX: S61.511A Laceration without foreign body of right wrist, initial encounter (principal); F17.210 Nicotine dependence, cigarettes, uncomplicated; W25.XXXA Contact with sharp glass, initial encounter; Y93.89 Activity, other specified; Y92.89 Other specified places as the place of occurrence of the external cause; Y99.8 Other external cause status
CPT/HCPCS: 12002; 90471; 90715

== ENCOUNTER 2025-08-08 12:44 | Emergency (ER) | payer MEDICAID ==
[~2025-08-08] VITALS: Ht 182.9 cm; Wt 116.7 kg
[~2025-08-08 12:44] MED LIST changes: +CEPH250C PO; +IBUP-1455 PO
[2025-08-08 13:28] VITALS: BP 145/89; PULSE 89; RESP 20; TEMP 98; O2SAT 98
--- NOTE | 2025-08-08 13:30 | ED.PDOC ---
History of Present Illness HPI Comments A 24 YEAR OLD MALE PRESENTS TO THE ED WITH COMPLAINT OF SUTURE REMOVAL. PATIENT STATES HE HAD SUTURES PLACED ON THE PALM OF HIS RIGHT HAND ON 07/20/2025 AND IS HERE IN THE ED TODAY TO HAVE THE SUTURES REMOVED. PATIENT DENIES FEVER, CHILLS, SHORTNESS OF BREATH, CHEST PAIN, ABDOMINAL PAIN, NAUSEA, VOMITING, HEADACHE, OR OTHER COMPLAINTS. NO OTHER SYMPTOMS OR MODIFYING FACTORS AT THIS TIME. PATIENT IS ALERT, ORIENTED X 4, AND HAS STEADY GAIT. Chief Complaint: Suture Removal Time Seen by MD: 12:57 Primary Care Provider: UNKNOWN Reviewed Notes: Nurses Notes, Medications, Allergies Allergies: Coded Allergies: NO KNOWN ALLERGIES (Unverified , 09/20/23) Home Meds Active Scripts Ibuprofen Micronized (Ibuprofen) 800 Mg Tab, 800 MG PO Q8HP PRN, #20 TAB Prov:FRANCK JOHNSON PAC 07/20/25 Cephalexin (KEFLEX CAPSULE) 250 Mg Cp, 1 CAP PO QID for 7 Days, #28 CAP Prov:FRANCK JOHNSON PAC 07/20/25 Hydrocodone-Acetaminophen (Hydrocodone Bitartrate/AC 10-325 mg) 1 Tab Tab, 1 TAB PO QID PRN, #40 TAB Prov:CHANTEL SLAUGHTER MD 03/08/25 Information Source: Patient Mode of Arrival: Ambulatory Severity: None Timing: Weeks Duration: Since onset Prehospital treatment: None Medication Refill: For: Other (SUTURE REMOVAL) Past Medical History PAST MEDICAL HISTORY: Denies Surgical History: Denies all surgeries Family History Family History: Reviewed,noncontributory to illness, Family hx of Cancer Social History Smoker: Cigarettes Alcohol: Occasionally Drugs: Marijuana Lives In: Home Constitutional: denies: chills, diaphoresis, fatigue, fever, malaise, sweats, weakness, others EENTM: denies: blurred vision, double vision, ear bleeding, ear discharge, ear drainage, ear pain, ear ringing, eye pain, eye redness, hearing loss, mouth pain, mouth swelling, nasal discharge, nose bleeding, nose congestion, nose pain, photophobia, tearing, throat pain, throat swelling, voice changes, others Respiratory: denies: cough, hemoptysis, orthopnea, SOB at rest, shortness of breath, SOB with excertion, stridor, wheezing, others Cardiovascular: denies: chest pain, dizzy spells, diaphoresis, Dyspnea on exertion, edema, irregular heart beat, left arm pain, lightheadedness, palpitations, PND, syncope, others Gastrointestinal: denies: abdomen distended, abdominal pain, blood streaked bowels, constipated, diarrhea, dysphagia, difficulty swallowing, hematemesis, melena, nausea, poor appetite, poor fluid intake, rectal bleeding, rectal pain, vomiting, others Genitourinary: denies: burning, dysuria, flank pain, frequency, hematuria, incontinence, penile discharge, penile sore, pain, testicle pain, testicle swelling, urgency, others Neurological: denies: dizziness, fainting, headache, left sided numbness, left sided weakness, numbness, paresthesia, pre-existing deficit, right sided numbness, right sided weakness, seizure, speech problems, tingling, tremors, weakness, others Musculoskeletal: denies: back pain, gout, joint pain, joint swelling, muscle pain, muscle stiffness, neck pain, others Integumetry: reports: laceration (RIGHT PALM ); denies: bruises, change in color, change in hair/nails, dryness, lesions, lumps, rash, wounds, others Allergic/Immunocompromised: denies: Difficulty Healing, Frequent Infections, Hives, Itching, others Hematologic/Lymphatic: denies: anemia, blood clots, easy bleeding, easy bruising, swollen glands, others Endocrine: denies: excessive hunger, excessive sweating, excessive thirst, excessive urination, flushing, intolerance to cold, intolerance to heat, unexplained weight gain, unexplained weight loss, others Psychiatric: denies: anxiety, bipolar disorder, depression, hopeless, panic disorder, schizophrenia, sleepless, suicidal, others All Other Systems: Reviewed and Negative Physical Exam General Appearance: No Apparent Distress, Normal HEENT: Normal ENT Inspection, PERRL/EOMI, Pharynx Normal, TMs Normal Neck: Full Range of Motion, Non-Tender, Normal, Normal Inspection Respiratory: Chest Non-Tender, Lungs Clear, No Accessory Muscle Use, No Respiratory Distress, Normal Breath Sounds Cardiovascular: No Edema, No JVD, No Murmur, No Gallop, Normal Peripheral Pulses, Regular Rate/Rhythm Breast Exam: Deferred Gastrointestinal: No Organomegaly, Non Tender, No Pulsatile Mass, Normal Bowel Sounds, Soft Genitalia: Deferred Pelvic: Deferred Rectal: Deferred Extremities: No calf tenderness, Normal capillary refill, Normal inspection, Normal range of motion, Non-tender, No pedal edema Musculoskeletal : Apperance: Normal Neurologic: Alert, investigation division lieutenant II-XII nml as Tested, No Motor Deficits, Normal Affect, Normal Mood, No Sensory Deficits Cerebellar Function: Normal Reflexes: Normal Skin: Dry, Lacerations (RIGHT PALM REPAIRED, HEALED, NO INFECTION SIHGNS. ), Normal Color, Warm Peripheral Pulses: 2+ carotid (R), 2+ carotid (L), 2+ Radial (R), 2+ Radial (L) Lymphatic: No Adenopathy Was a procedure done? Was a procedure done?: No Differential Dx Considerations may include: ENCOUNTER FOR SUTURE REMOVAL, WOUND RECHECKED, WOUND INFECTION X-Ray, Labs, Meds, VS Vital Signs Date Time Temp Pulse Resp B/P (MAP) Pulse Ox O2 Delivery O2 Flow Rate FiO2 08/08/25 13:28 98.0 89 20 145/89 (107) 98 98.0 08/08/25 12:45 98.0 101 20 145/89 98 98.0 X-Ray, Labs, Meds, VS Comment EXTERNAL MEDICAL RECORDS REVIEWED: [NONE] INDEPENDENT HISTORIANS: [NONE] SOCIAL DETERMINANTS OF HEALTH: [NONE] LABS ORDERED: NONE REVIEWED AND INTERPRETED RESULTS: NONE IMAGING ORDERED: NONE TREATMENTS ORDERED: PATIENT'S SUTURES WERE REMOVED FROM HIS RIGHT HAND. PROCEDURES PERFORMED: NONE CRITICAL CARE TIME: NONE I HAVE DISCUSSED THE PATIENT WITH THE ATTENDING PHYSICIAN DR. LARSEN AND HE AGREES WITH THE PATIENT'S PLAN OF CARE AND DISPOSITION. BASED ON HISTORY OF PRESENT ILLNESS, AND PHYSICAL EXAM, PATIENT WILL BE DISCHARGED HOME. SHARED DECISION MAKING: PATIENT INSTRUCTED TO FOLLOW UP WITH PRIMARY CARE PROVIDER IN 1-2 DAYS FOR RE-EVALUATION OF SYMPTOMS. PATIENT VERBALIZES UNDERSTANDING TO RETURN TO ED FOR NEW OR WORSENING SYMPTOMS OR IF FOLLOW UP WITH PCP CANNOT BE OBTAINED. PATIENT FEELS COMFORTABLE GOING HOME AT THIS TIME. ALL QUESTIONS ADDRESSED AT TIME OF DISCHARGE. Time of 1ST Reevaluation: 13:37 Reevaluation 1ST: Improved Patient Education/Counseling: Diagnosis, Treatment, Need For Follow Up Family Education/Counseling: Diagnosis, Treatment, Need For Follow Up Medical Screening: No EMC Exist At This Time SEPSIS Sepsis Screen Date sepsis recognized/suspect: Aug 08, 2025 Time Sepsis recognized/suspect: 1245 Recent Procedure: No On Antibiotic Therapy: No Respiratory Rate >20: No Heart Rate >90: No Temp<36 C (96.8 F) or >38.3 C: No SBP <90 or MAP <65 mmHG: No New Acute Mental Status Change: No Is the patient on CPAP, BIPAP,: No Vital Signs Date Time Temp Pulse Resp B/P (MAP) Pulse Ox O2 Delivery O2 Flow Rate FiO2 08/08/25 13:28 98.0 89 20 145/89 (107) 98 98.0 08/08/25 12:45 98.0 101 20 145/89 98 98.0 Departure 1 Departure Time of Disposition: 13:37 Impression: Primary Impression: Encounter for removal of sutures Disposition: 01 HOME / SELF CARE / HOMELESS Condition: Stable Additional Instructions: FOLLOW-UP WITH PCP IN 1 TO 2 DAYS. RETURN TO ED FOR ANY NEW OR WORSENING SYMPTOMS. Discharged With: Self Critical Care Note Critical Care Time?: No Stability Stability form required: No I personally scribed for HAY MATHEW ([email or web address]) on 08/08/25 at 13:29. El ectronically submitted by Satnam Lira ([email or web address]). HAY MATHEW Aug 08, 2025 13:29
== END 2025-08-08 13:33 | disposition home or self-care (01) ==
LOC: ER 12:44
DX: S61.411D Laceration without foreign body of right hand, subsequent encounter (principal); F17.210 Nicotine dependence, cigarettes, uncomplicated; Z48.02 Encounter for removal of sutures; X58.XXXD Exposure to other specified factors, subsequent encounter